=== PATIENT | male | born 1990 | race American Indian/Alaskan Native ===

== ENCOUNTER 2019-11-03 23:40 | Emergency (ER) | payer SELFPAY ==
[2019-11-04] MEDS ORDERED: methylPREDNISolone Sod Succinate 125 MG/2 ML INJ ONE
[2019-11-04] MEDS ORDERED: diphenhydrAMINE 50 MG/ML VIAL IV ONE
[2019-11-04] MEDS ORDERED: methylPREDNISolone Sod Succinate 125 MG/2 ML INJ IV ONE
[2019-11-04] MEDS ORDERED: FAMOTIDINE 20 MG/2 ML INJ IV ONE ×2
[2019-11-04] MEDS ORDERED: SODIUM CHLORIDE 0.9% 1000 ML 1,000 ML IV ONE
[2019-11-04] MEDS ORDERED: diphenhydrAMINE 50 MG/ML VIAL ONE (00:01)
[2019-11-04] MEDS ORDERED: ALBUTEROL 2.5 MG/3 ML NEBU IH ONE ×2 (00:02)
--- NOTE | 2019-11-04 00:04 | Emergency Department Report ---
ED Allergic Reaction HPI - General Chief complaint: Allergic Reaction Stated complaint: ALLERGIC REACTION Time Seen by Provider: 11/04/19 00:00 Source: patient Mode of arrival: Ambulatory Limitations: No Limitations - History of Present Illness Initial Comments: Patient is 28 years old male with history of allergy to shellfish. Patient presented to the ER complaining of shortness of breath and difficulty breathing started immediately after he has been around shellfish. Patient stated that he did not eat shellfish food. Patient is in moderate respiratory distress with generalized wheezing. Patient denied any difficulty swallowing. No tongue sw elling or facial swelling. MD Complaint: allergic reaction -: Sudden, This evening Exposure: food Symptoms: difficulty breathing Treatment Prior to Arrival: none Previous Allergy History: prior ED visit(s) - Related Data Allergies Allergy/AdvReac Type Severity Reaction Status Date / Time shellfish derived Allergy Shortness Verified 11/03/19 23:50 of Breath ED Review of Systems ROS: Stated complaint: ALLERGIC REACTION Other details as noted in HPI Comment: All other systems reviewed and negative Constitutional: denies: chills, fever Respiratory: shortness of breath, SOB with exertion, SOB at rest, wheezing. denies: cough Cardiovascular: denies: chest pain, palpitations Gastrointestinal: denies: abdominal pain, nausea, vomiting, diarrhea, constipation, hematemesis, melena, hematochezia Musculoskeletal: denies: back pain Neurological: denies: headache, weakness, numbness, paresthesias, confusion, abnormal gait ED Past Medical Hx - Past Medical History Previous Medical History?: No - Surgical History Past Surgical History?: Yes Additional Surgical History: tonsil. tubes to ear - Social History Smoking Status: Current Every Day Smoker Substance Use Type: None ED Physical Exam - General Limitations: No Limitations General appearance: alert, in distress (Moderate respiratory distress.) - Head Head exam: Present: atraumatic, normocephalic, normal inspection - Eye Eye exam: Present: normal appearance - ENT ENT exam: Present: normal exam, normal orophraynx, mucous membranes moist - Neck Neck exam: Present: normal inspection, full ROM. Absent: tenderness, meningismus, lymphadenopathy, thyromegaly - Respiratory Respiratory exam: Present: respiratory distress, wheezes, rhonchi. Absent: rales, stridor, chest wall tenderness, accessory muscle use, decreased breath sounds, prolonged expiratory - Cardiovascular Cardiovascular Exam: Present: regular rate, normal rhythm, normal heart sounds - GI/Abdominal GI/Abdominal exam: Present: soft, normal bowel sounds. Absent: distended, tenderness, guarding, rebound, rigid, organomegaly, mass, bruit, pulsatile mass, hernia - Extremities Exam Extremities exam: Present: normal inspection, full ROM, normal capillary refill. Absent: pedal edema, calf tenderness - Back Exam Back exam: Present: normal inspection, full ROM. Absent: CVA tenderness (R), CVA tenderness (L) - Neurological Exam Neurological exam: Present: alert, oriented X3, CN II-XII intact, normal gait, reflexes normal. Absent: motor sensory deficit - Psychiatric Psychiatric exam: Present: normal mood - Skin Skin exam: Present: warm, intact, normal color ED Course Vital Signs 11/03/19 11/04/19 11/04/19 23:47 00:09 00:10 Temperature 97.5 F L Pulse Rate 84 71 70 Respiratory 18 19 13 Rate Blood Pressure 137/84 119/68 O2 Sat by Pulse 94 99 99 Oximetry 11/04/19 11/04/19 11/04/19 00:30 01:00 01:30 Temperature Pulse Rate 76 68 91 H Respiratory 17 15 15 Rate Blood Pressure 127/67 114/57 112/63 O2 Sat by Pulse 97 96 96 Oximetry ED Medical Decision Making - Lab Data Result diagrams: 11/04/19 00:08 11/04/19 00:08 - Medical Decision Making Patient is 28 years old male with history of allergy to shellfish. Patient presented to the ER complaining of shortness of breath and difficulty breathing started immediately after he has been around shellfish. Patient stated that he did not eat shellfish food. Patient is in moderate respiratory distress with generalized wheezing. Patient denied any difficulty swallowing. No tongue swelling or facial swelling. Patient immediately received albuterol, Solu-Medrol, Benadryl and Pepcid. Patient observed in the ER. Patient stated that he is feeling much better. He denied any chest tightness or shortness of breath. Patient reexamined by me again no evidence of wheezing. No orolingual swelling. Patient given prescription for Benadryl, prednisone and Pepcid and advised to follow-up with his primary care physician in the next 2 to 3 days and to return to the ER if he develop any new symptoms. Critical care attestation.: If time is entered above; I have spent that time in minutes in the direct care of this critically ill patient, excluding procedure time. ED Disposition Clinical Impression: Allergic reaction Disposition: DC-01 TO HOME OR SELFCARE Is pt being admited?: No Condition: Stable Instructions: Food Allergy (ED) Referrals: PRIMARY CARE, [Primary Care Provider] - 3-5 Days
[2019-11-04 00:31] LABS: Basophils % (Auto) 0.7 % (0.0-1.8); Eosinophils # (Auto) 0.3 K/mm3 (0.0-0.4); Eosinophils % (Auto) 4.8 % (0.0-4.3); Hematocrit 43.4 % (35.5-45.6); Hemoglobin 14.2 gm/dl (11.8-15.2); Lymphocytes # (Auto) 2.6 K/mm3 (1.2-5.4); Lymphocytes % (Auto) 47.2 % (13.4-35.0); Mean Corpuscular HGB Conc 33 % (32-34); Mean Corpuscular Volume 86 fl (84-94); Monocytes # (Auto) 0.3 K/mm3 (0.0-0.8); Monocytes % (Auto) 6.4 % (0.0-7.3); Platelet Count 219 K/mm3 (140-440); Red Blood Count 5.07 M/mm3 (3.65-5.03); Red Cell Distribution Width 12.9 % (13.2-15.2)
[2019-11-04 00:40] LABS: BUN/Creatinine Ratio 12; Blood Urea Nitrogen 15 mg/dL (9-20); Calcium 9.5 mg/dL (8.4-10.2); Hemolysis Index 14
[2019-11-05 12:58] VITALS: BP 106/70
== END 2019-11-04 04:19 | disposition home or self-care (01) ==
LOC: ED 23:40
DX: T78.40XA Allergy, unspecified, initial encounter (principal); F17.200 Nicotine dependence, unspecified, uncomplicated; Z90.49 Acquired absence of other specified parts of digestive tract; X58.XXXA Exposure to other specified factors, initial encounter
CPT/HCPCS: 36415; 80048; 85025; 96374; 96375; 99283; J1200; J2930